=== PATIENT | female | born 1995 | race Caucasian/White ===

== ENCOUNTER 2023-09-17 08:38 | Day surgery (SDC) | payer OTHER ==
[~2023-09-17] VITALS: Ht 162.6 cm; Wt 107.9 kg
[2023-09-17] VITALS (12 sets, daily range): BP systolic 106–130; BP diastolic 57–87
--- NOTE | 2023-09-17 09:00 | NUR ---
PT TO DAY SURGERY FOR HYSTEROSCOPY DILATION AND CURETTAGE. PLAN OF CARE DISCUSSED AND QUESTIONS ANSWERED. IS WITH PT AND HER RIDE HOME.
--- NOTE | 2023-09-17 14:36 | NUR ---
PT TO DAY SURGERY STEP DOWN FROM PACU. PT AWAKE AND ORIENTED, ABLE TO MOVE SELF IN BED. HAS FERNANDO PAD ON AND HAS ABOUT 15% SATURATION. PT DENIES PAIN.
--- NOTE | 2023-09-17 14:51 | NUR ---
PT TOLERATING PO FLUIDS AND CRACKERS WELL. AT BEDSIDE. NO CHANGE IN FERNANDO PAD. Discharge instructions reviewed with patient. Patient verbalizes understanding. Copy given to patient to take home. Patient States Post-Procedure ride home has been arranged.
--- NOTE | 2023-09-17 15:18 | NUR ---
Patient up to Ambulate independently. Gait steady. Discharged via wheelchair to private car for ride home.
== END 2023-09-17 15:19 | disposition home or self-care (01) ==
LOC: ORSCMMR 08:38 → ORD 10:00 → ORSCMMR 15:19
PROVIDERS: Obstetrics & Gynecology
PROC: 0UDB8ZX Extraction of Endometrium, Via Natural or Artificial Opening Endoscopic, Diagnostic (ICD-10-PCS; principal; 2023-09-17 10:00)
DX: N93.8 Other specified abnormal uterine and vaginal bleeding (principal); R10.2 Pelvic and perineal pain; E66.9 Obesity, unspecified; Z68.39 Body mass index [BMI] 39.0-39.9, adult
CPT/HCPCS: 88305; J0690; J1100; J1885; J2250; J2405; J2704; J3010; J7120